=== PATIENT | male | born 1955 | race Caucasian/White ===

== ENCOUNTER 2017-10-28 21:32 | Inpatient (IN) | payer OTHER ==
[2017-10-28] MEDS: HEPARIN 1000 UNITS/ML 10 ML INJ IV ×2 (21:48)
[2017-10-28 21:55] LABS: ADD MAN DIFF? NO
[2017-10-28 21:58] LABS: BASOPHIL # 0.1 10^3/ul (0.0-0.1); BASOPHILS % 0.5 % (0.0-2.0); EOSINOPHILS # 0.3 10^3/ul (0.0-0.5); EOSINOPHILS % 2.2 % (0.0-7.0); HEMATOCRIT 43.1 % (42.0-52.0); HEMOGLOBIN 14.6 g/dl (14.0-18.0); LYMPHOCYTES # 4.5 10^3/ul (0.8-2.9); LYMPHOCYTES % 39.9 % (15.0-51.0); MEAN CORPUSCULAR HEMOGLOBIN 29.1 pg (29.0-33.0); MEAN CORPUSCULAR HGB CONC 33.9 g/dl (32.0-37.0); MEAN CORPUSCULAR VOLUME 85.9 fl (82.0-101.0); MEAN PLATELET VOLUME 10.7 fl (7.4-10.4); MONOCYTES % 8.8 % (0.0-11.0); NEUTROPHIL # 5.5 10^3/ul (1.6-7.5); NEUTROPHILS % 48.2 % (39.0-77.0); PLATELET COUNT 262 10^3/UL (140-415); RED BLOOD COUNT 5.02 10^6/ul (4.70-6.10); RED CELL DISTRIBUTION WIDTH 12.6 % (11.5-14.5)
[2017-10-28 21:58] LABS: WHITE BLOOD COUNT 11.4 10^3/ul (4.8-10.8)
[2017-10-28] MEDS ORDERED: HEPARIN 1000 UNITS/ML 10 ML INJ ×2 (22:11)
[2017-10-28] MEDS ORDERED: MIDAZOLAM 1 MG/ML 2 ML INJ ×2 (22:11)
[2017-10-28] MEDS ORDERED: FENTAnyl 50 MCG/ML VIAL ×2 (22:11)
[2017-10-28] MEDS ORDERED: LIDOCAINE 1% (MDV) 20 ML INJ ×2 (22:11)
[2017-10-28] MEDS ORDERED: IODIXANOL LOCM 100 ML BTL ×2 (22:11)
[2017-10-28 22:14] LABS: ANION GAP 10 (8-16); BLOOD UREA NITROGEN 18 mg/dl (7-20); CALCIUM 9.4 mg/dl (8.4-10.2); CARBON DIOXIDE 32 mmol/L (21-31); CHLORIDE 107 mmol/L (97-110); CREATININE 0.92 mg/dl (0.61-1.24); GLUCOSE 159 mg/dl (70-220); POTASSIUM 4.3 mmol/L (3.5-5.1); SODIUM 145 mmol/L (135-144)
[2017-10-28] MEDS ORDERED: SOD CHLORIDE 0.9% 500 ML ×4 (22:14→23:06)
[2017-10-28] MEDS ORDERED: VERAPAMIL 5 MG INJ ×2 (22:14)
[2017-10-28] MEDS ORDERED: NITROGLYCERIN (IC) 100 MCG/ML INJ ×2 (22:14)
[2017-10-28 22:26] LABS: TROPONIN-I 0.066 ng/ml (0.00-0.12)
[2017-10-28] MEDS ORDERED: BIVALIRUDIN 250MG /NS 50 ML 50 ML IVPB ×4 (22:34→22:41)
[2017-10-28] MEDS ORDERED: ATROPINE 1 MG/10 ML SYRINGE ×2 (23:05)
[2017-10-28] MEDS ORDERED: DOPamine-D5W 1.6 MG/ML 250 ML ×2 (23:05)
[2017-10-28] MEDS ORDERED: IOHEXOL 350MG/ML 50 ML BTL ×2 (23:06)
[2017-10-28] MEDS ORDERED: TICAGRELOR 90 MG TABLET ×2 (23:09)
[2017-10-28] MEDS ORDERED: SOD CHLORIDE 0.9% 1,000 ML IV ×2 (23:09)
[2017-10-28] MEDS ORDERED: FUROSEMIDE 40 MG INJ ×2 (23:12)
[2017-10-28] MEDS ORDERED: ONDANSETRON 4 MG INJ IV ×2 (23:30)
[2017-10-28] MEDS ORDERED: AL HYDROX/MG HYDROX/SIMETH 30 ML CUP PO ×2 (23:30)
[2017-10-28] MEDS: BIVALIRUDIN 250 MG in SOD CHLORIDE 0.9% 500 ML IV (23:30)
[2017-10-29] MEDS: morphine 2 MG INJ IV ×6 (00:44→07:27)
[2017-10-29] MEDS: SOD CHLORIDE 0.9% 1,000 ML IV ×2 (00:45)
[2017-10-29 05:39] LABS: ADD MAN DIFF? NO
[2017-10-29 05:52] LABS: WHITE BLOOD COUNT 11.1 10^3/ul (4.8-10.8)
[2017-10-29 05:52] LABS: BASOPHILS % 0.3 % (0.0-2.0); EOSINOPHILS # 0.1 10^3/ul (0.0-0.5); EOSINOPHILS % 0.7 % (0.0-7.0); HEMATOCRIT 41.8 % (42.0-52.0); LYMPHOCYTES # 2.4 10^3/ul (0.8-2.9); LYMPHOCYTES % 21.5 % (15.0-51.0); MEAN CORPUSCULAR HEMOGLOBIN 28.9 pg (29.0-33.0); MEAN CORPUSCULAR HGB CONC 33.5 g/dl (32.0-37.0); MEAN CORPUSCULAR VOLUME 86.4 fl (82.0-101.0); MEAN PLATELET VOLUME 10.7 fl (7.4-10.4); MONOCYTE # 0.9 10^3/ul (0.3-0.9); MONOCYTES % 7.6 % (0.0-11.0); NEUTROPHIL # 7.7 10^3/ul (1.6-7.5); NEUTROPHILS % 69.5 % (39.0-77.0); PLATELET COUNT 205 10^3/UL (140-415); RED BLOOD COUNT 4.84 10^6/ul (4.70-6.10)
[2017-10-29 06:24] LABS: ALANINE AMINOTRANSFERASE 134 IU/L (13-69); ALBUMIN 3.5 g/dl (3.3-4.9); ALBUMIN/GLOBULIN RATIO 1.34; ALKALINE PHOSPHATASE 39 IU/L (42-121); ANION GAP 11 (8-16); ASPARTATE AMINO TRANSFERASE 726 IU/L (15-46); BILIRUBIN,INDIRECT 0.5 mg/dl (0-1.1); BILIRUBIN,TOTAL 0.5 mg/dl (0.2-1.3); BLOOD UREA NITROGEN 18 mg/dl (7-20); CARBON DIOXIDE 28 mmol/L (21-31); CHLORIDE 108 mmol/L (97-110); CHOL/HDL RATIO 5.4 RATIO; CHOLESTEROL 239 mg/dl (100-200); CREATININE 0.78 mg/dl (0.61-1.24); GLUCOSE 145 mg/dl (70-220); HDL CHOLESTEROL 44 mg/dl (30-78); LDL CHOLESTEROL,CALCULATED 160 mg/dl; MAGNESIUM 1.6 mg/dl (1.7-2.5); POTASSIUM 4.2 mmol/L (3.5-5.1); SODIUM 143 mmol/L (135-144); TOTAL PROTEIN 6.1 g/dl (6.1-8.1); TRIGLYCERIDES 173 mg/dl (0-149)
[2017-10-29 06:29] LABS: FREE T4 (FREE THYROXINE) 1.07 ng/dl (0.78-2.44)
[2017-10-29 06:30] LABS: B-TYPE NATRIURETIC PEPTIDE 498 PG/ML (0-125)
[2017-10-29 07:15] LABS: CREATINE KINASE 7601 IU/L (23-200)
[2017-10-29 07:53] LABS: CK INDEX 3.4
[2017-10-29] MEDS: ASPIRIN (EC) 81 MG TAB PO ×2 (08:23)
[2017-10-29] MEDS: LOSARTAN 50 MG TAB PO ×2 (08:24)
[2017-10-29] MEDS: FAMOTIDINE 20 MG TAB PO ×4 (08:24→21:32)
[2017-10-29] MEDS: DOCUSATE SODIUM 100 MG CAP PO ×4 (08:24→21:00)
[2017-10-29] MEDS: TICAGRELOR 90 MG TABLET PO ×4 (08:30→21:36)
[2017-10-29] MEDS: OXYCODONE/ACETAMINOPHEN (5/325) TAB PO ×4 (10:22→21:40)
[2017-10-29] MEDS: NICOTINE (21 MG/24 HR) PATCH TRANSDERM ×2 (10:53)
[2017-10-29] MEDS: ISOSORBIDE MONONITRATE(SR)60 MG TAB PO ×4 (11:44→21:32)
[2017-10-29 12:56] LABS: CREATINE KINASE 6786 IU/L (23-200)
[2017-10-29 13:15] LABS: HEMOGLOBIN A1C 6.2 % (0-5.9)
[2017-10-29] MEDS: ATORVASTATIN 80 MG TAB PO ×2 (21:33)
[2017-10-29] MEDS: MAGNESIUM SULFATE 2 GM/50 ML 50 ML IVPB ×2 (23:54)
[2017-10-30 07:28] LABS: ADD MAN DIFF? NO
[2017-10-30 07:32] LABS: BASOPHILS % 0.4 % (0.0-2.0); EOSINOPHILS # 0.1 10^3/ul (0.0-0.5); EOSINOPHILS % 1.2 % (0.0-7.0); HEMATOCRIT 35.7 % (42.0-52.0); HEMOGLOBIN 12.2 g/dl (14.0-18.0); LYMPHOCYTES % 19.8 % (15.0-51.0); MEAN CORPUSCULAR HEMOGLOBIN 29.4 pg (29.0-33.0); MEAN CORPUSCULAR HGB CONC 34.2 g/dl (32.0-37.0); MEAN PLATELET VOLUME 10.9 fl (7.4-10.4); MONOCYTES % 9.5 % (0.0-11.0); NEUTROPHIL # 6.9 10^3/ul (1.6-7.5); NEUTROPHILS % 68.6 % (39.0-77.0); PLATELET COUNT 173 10^3/UL (140-415); RED BLOOD COUNT 4.15 10^6/ul (4.70-6.10); RED CELL DISTRIBUTION WIDTH 12.8 % (11.5-14.5)
[2017-10-30 07:49] LABS: CREATINE KINASE 1252 IU/L (23-200)
[2017-10-30 07:51] LABS: ALANINE AMINOTRANSFERASE 99 IU/L (13-69); ALBUMIN 3.3 g/dl (3.3-4.9); ALBUMIN/GLOBULIN RATIO 1.32; ALKALINE PHOSPHATASE 37 IU/L (42-121); ANION GAP 8 (8-16); ASPARTATE AMINO TRANSFERASE 273 IU/L (15-46); BILIRUBIN,INDIRECT 1.2 mg/dl (0-1.1); BILIRUBIN,TOTAL 1.2 mg/dl (0.2-1.3); BLOOD UREA NITROGEN 17 mg/dl (7-20); CALCIUM 8.5 mg/dl (8.4-10.2); CARBON DIOXIDE 32 mmol/L (21-31); CHLORIDE 104 mmol/L (97-110); CREATININE 0.86 mg/dl (0.61-1.24); GLUCOSE 199 mg/dl (70-220); POTASSIUM 3.7 mmol/L (3.5-5.1); SODIUM 140 mmol/L (135-144); TOTAL PROTEIN 5.8 g/dl (6.1-8.1)
[2017-10-30 07:53] LABS: PHOSPHORUS 2.7 mg/dl (2.5-4.9)
[2017-10-30 07:53] LABS: MAGNESIUM 1.8 mg/dl (1.7-2.5)
[2017-10-30 07:59] LABS: B-TYPE NATRIURETIC PEPTIDE 1860 PG/ML (0-125)
[2017-10-30 08:02] LABS: CK INDEX 1.8
[2017-10-30] MEDS: FAMOTIDINE 20 MG TAB PO ×4 (08:16→21:34)
[2017-10-30] MEDS: DOCUSATE SODIUM 100 MG CAP PO ×4 (08:16→21:00)
[2017-10-30] MEDS: ASPIRIN (EC) 81 MG TAB PO ×2 (08:16)
[2017-10-30] MEDS: LOSARTAN 50 MG TAB PO ×2 (08:16)
[2017-10-30] MEDS: ISOSORBIDE MONONITRATE(SR)60 MG TAB PO ×4 (08:16→21:36)
[2017-10-30] MEDS: NICOTINE (21 MG/24 HR) PATCH TRANSDERM ×2 (08:16)
[2017-10-30] MEDS: TICAGRELOR 90 MG TABLET PO ×4 (09:40→21:39)
[2017-10-30] MEDS: ATORVASTATIN 80 MG TAB PO ×2 (21:35)
[2017-10-31 08:39] LABS: ADD MAN DIFF? NO
[2017-10-31 08:48] LABS: BASOPHILS % 0.3 % (0.0-2.0); EOSINOPHILS # 0.1 10^3/ul (0.0-0.5); EOSINOPHILS % 1.3 % (0.0-7.0); HEMATOCRIT 36.8 % (42.0-52.0); HEMOGLOBIN 12.6 g/dl (14.0-18.0); LYMPHOCYTES # 2.1 10^3/ul (0.8-2.9); LYMPHOCYTES % 20.2 % (15.0-51.0); MEAN CORPUSCULAR HEMOGLOBIN 29.2 pg (29.0-33.0); MEAN CORPUSCULAR HGB CONC 34.2 g/dl (32.0-37.0); MEAN CORPUSCULAR VOLUME 85.2 fl (82.0-101.0); MEAN PLATELET VOLUME 11.6 fl (7.4-10.4); MONOCYTE # 1.1 10^3/ul (0.3-0.9); MONOCYTES % 10.2 % (0.0-11.0); NEUTROPHIL # 7.1 10^3/ul (1.6-7.5); NEUTROPHILS % 67.3 % (39.0-77.0); PLATELET COUNT 184 10^3/UL (140-415); RED BLOOD COUNT 4.32 10^6/ul (4.70-6.10); RED CELL DISTRIBUTION WIDTH 12.9 % (11.5-14.5)
[2017-10-31 08:48] LABS: WHITE BLOOD COUNT 10.5 10^3/ul (4.8-10.8)
[2017-10-31] MEDS: NICOTINE (21 MG/24 HR) PATCH TRANSDERM ×2 (08:54)
[2017-10-31] MEDS: DOCUSATE SODIUM 100 MG CAP PO ×2 (08:55)
[2017-10-31] MEDS: ASPIRIN (EC) 81 MG TAB PO ×2 (08:55)
[2017-10-31] MEDS: ISOSORBIDE MONONITRATE(SR)60 MG TAB PO ×2 (08:55)
[2017-10-31] MEDS: FAMOTIDINE 20 MG TAB PO ×2 (08:55)
[2017-10-31] MEDS: LOSARTAN 50 MG TAB PO ×2 (08:55)
[2017-10-31 09:12] LABS: ALANINE AMINOTRANSFERASE 102 IU/L (13-69); ALBUMIN 3.6 g/dl (3.3-4.9); ALBUMIN/GLOBULIN RATIO 1.28; ALKALINE PHOSPHATASE 45 IU/L (42-121); ANION GAP 11 (8-16); ASPARTATE AMINO TRANSFERASE 132 IU/L (15-46); BILIRUBIN,INDIRECT 1.5 mg/dl (0-1.1); BILIRUBIN,TOTAL 1.5 mg/dl (0.2-1.3); BLOOD UREA NITROGEN 13 mg/dl (7-20); CARBON DIOXIDE 30 mmol/L (21-31); CHLORIDE 105 mmol/L (97-110); CREATINE KINASE 548 IU/L (23-200); CREATININE 0.85 mg/dl (0.61-1.24); GLUCOSE 138 mg/dl (70-220); MAGNESIUM 1.8 mg/dl (1.7-2.5); POTASSIUM 3.8 mmol/L (3.5-5.1); SODIUM 142 mmol/L (135-144); TOTAL PROTEIN 6.4 g/dl (6.1-8.1)
[2017-10-31] MEDS: TICAGRELOR 90 MG TABLET PO ×2 (10:28)
== END 2017-10-31 11:40 | disposition home or self-care (01) | DRG 247 ==
LOC: ICU 10-29 00:16 → E/R 21:32 → CCL 22:25 → SDS 22:25 → MS4 10-29 20:10 → CCL 10-29 00:16 → ICU 10-29 00:16 → SDS 22:25 → MS4 10-29 20:10
PROC: 027034Z Dilation of Coronary Artery, One Artery with Drug-eluting Intraluminal Device, Percutaneous Approach (ICD-10-PCS; principal; 2017-10-28 22:00)
PROC: 02C03ZZ Extirpation of Matter from Coronary Artery, One Artery, Percutaneous Approach (ICD-10-PCS; 2017-10-28 22:00)
PROC: 4A023N7 Measurement of Cardiac Sampling and Pressure, Left Heart, Percutaneous Approach (ICD-10-PCS; 2017-10-28 22:00)
PROC: B211YZZ Fluoroscopy of Multiple Coronary Arteries using Other Contrast (ICD-10-PCS; 2017-10-28 22:00)
PROC: B215YZZ Fluoroscopy of Left Heart using Other Contrast (ICD-10-PCS; 2017-10-28 22:00)
DX: I21.19 ST elevation (STEMI) myocardial infarction involving other coronary artery of inferior wall (principal); I11.0 Hypertensive heart disease with heart failure; I50.9 Heart failure, unspecified; E78.5 Hyperlipidemia, unspecified; F17.210 Nicotine dependence, cigarettes, uncomplicated; R09.02 Hypoxemia; R74.8 Abnormal levels of other serum enzymes; I25.10 Atherosclerotic heart disease of native coronary artery without angina pectoris; I95.1 Orthostatic hypotension; Z79.82 Long term (current) use of aspirin; Z82.49 Family history of ischemic heart disease and other diseases of the circulatory system
CPT/HCPCS: 36415; 71045; 80048; 80053; 80061; 82550; 82553; 83036; 83735; 83880; 84100; 84439; 84443; 84484; 85025; 87081; 93005; 93306; 93458; 96374; 96375; 99285-25; J0583